=== PATIENT | female | born 1995 | race Caucasian/White ===

== ENCOUNTER 2020-01-14 23:54 | Emergency (ER) | payer OTHER, BC ==
[~2020-01-14] VITALS: Ht 162.6 cm; Wt 86.2 kg
[2020-01-15 00:10] VITALS: BP 119/78
--- NOTE | 2020-01-15 00:15 | NUR ---
PT AMBULATED TO BED 4 WITH STEADY GAIT
--- NOTE | 2020-01-15 00:17 | NUR ---
X-Ray at bedside.
--- NOTE | 2020-01-15 00:22 | NUR ---
Dr. Reynoso examining patient.
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
[2020-01-15 01:54] VITALS: BP 119/78
--- NOTE | 2020-01-15 01:54 | NUR ---
Patient discharged with v/s stable. Written and verbal after care instructions given and explained. Patient verbalized understanding. Ambulatory with steady gait. All questions addressed prior to discharge. Advised to follow up with PMD.
== END 2020-01-15 01:54 | disposition home or self-care (01) ==
LOC: MED 23:54
DX: R52 Pain, unspecified (principal); V49.88XA Car occupant (driver) (passenger) injured in other specified transport accidents, initial encounter; Y93.89 Activity, other specified; Y92.89 Other specified places as the place of occurrence of the external cause; Y99.8 Other external cause status
CPT/HCPCS: 71045; 99283; Q0092; 99281